=== PATIENT | male | born 1995 | race Caucasian/White ===

== ENCOUNTER 2016-05-17 21:42 | Emergency (ER) | payer MEDICAID ==
[~2016-05-17] VITALS: Ht 162.6 cm; Wt 106.8 kg
[2016-05-17] MEDS ORDERED: SOD CHLORIDE 0.9% 1,000 ML IV STA (21:44)
[2016-05-17 21:51] VITALS: Ht 162.6 cm; Wt 106.8 kg
[2016-05-17] MEDS ORDERED: ONDANSETRON 4 MG INJ IV ONE (22:00)
[2016-05-17] MEDS ORDERED: CEFAZOLIN 1 GM/50 ML (PMX) 50 ML IVPB SCH (22:00)
[2016-05-17] MEDS ORDERED: morphine 2 MG INJ IV ONE (22:00)
--- NOTE | 2016-05-17 22:16 | RADRPT ---
PROCEDURE: Chest. CLINICAL INDICATION: Chest pain. TECHNIQUE: Single frontal view of the chest was obtained. COMPARISON: None. FINDINGS: The cardiac silhouette is within normal limits. The aortic arch is unremarkable. There is no focal consolidation, vascular congestion or pleural effusion. There is no pneumothorax. IMPRESSION: No evidence for active cardiopulmonary disease. .Abel Pierce MD, MD Date Time Electronically viewed and signed by .Abel Pierce MD, MD on 05/17/2016 22:16 .T/
[2016-05-17] MEDS ORDERED: DIPHTH/TET/ACEL PERTUSS (ADULT) 0.5 ML VIAL IM* ONE (22:30)
[2016-05-17] MEDS ORDERED: LIDOCAINE 1%/EPI (MDV) 20 ML INJ MT ONE (22:30)
[2016-05-17 22:44] LABS: ADD SCAN DIFF NO
[2016-05-17 22:45] LABS: BASOPHIL # 0.1 10^3/ul (0.0-0.1); BASOPHILS % 0.7 % (0.0-2.0); EOSINOPHILS # 0.4 10^3/ul (0.0-0.5); EOSINOPHILS % 3.1 % (0.0-7.0); HEMATOCRIT 48.1 % (42.0-52.0); HEMOGLOBIN 16.4 g/dl (14.0-18.0); LYMPHOCYTES # 3.9 10^3/ul (0.8-2.9); MEAN CORPUSCULAR HEMOGLOBIN 28.7 pg (29.0-33.0); MEAN CORPUSCULAR HGB CONC 34.1 g/dl (32.0-37.0); MEAN CORPUSCULAR VOLUME 84.1 fl (72.0-104.0); MEAN PLATELET VOLUME 9.1 fl (7.4-10.4); MONOCYTE # 0.8 10^3/ul (0.3-0.9); MONOCYTES % 6.5 % (0.0-13.0); NEUTROPHIL # 6.7 10^3/ul (1.6-7.5); NEUTROPHILS % 56.2 % (30.0-74.0); PLATELET COUNT 355 10^3/UL (140-415); RED BLOOD COUNT 5.72 10^6/ul (4.70-6.10); RED CELL DISTRIBUTION WIDTH 13.2 % (11.5-14.5); WHITE BLOOD COUNT 11.9 10^3/ul (4.8-10.8)
[2016-05-17 22:55] LABS: ALBUMIN 4.6 g/dl (3.3-4.9)
[2016-05-17 22:56] LABS: POTASSIUM 3.9 mmol/L (3.5-5.1)
[2016-05-17 22:58] LABS: BILIRUBIN,INDIRECT 0.5 mg/dl (0-1.1); BILIRUBIN,TOTAL 0.5 mg/dl (0.2-1.3); CREATININE 0.99 mg/dl (0.61-1.24); TOTAL PROTEIN 7.6 g/dl (6.1-8.1)
[2016-05-17 22:59] LABS: CALCIUM 9.3 mg/dl (8.4-10.2)
[2016-05-17 23:01] LABS: INR 0.92; PROTIME 12.4 Sec (12.2-14.2)
[2016-05-17 23:02] LABS: PARTIAL THROMBOPLASTIN TIME 26.3 Sec (25.0-35.0)
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
[2016-05-18] MEDS ORDERED: IOHEXOL 300MG/ML 30 ML BTL ONE (00:28)
[2016-05-18] MEDS ORDERED: SOD CHLORIDE 0.9% 100 ML ONE (00:28)
--- NOTE | 2016-05-18 00:32 | RADRPT ---
AMENDMENT: 05/18/2016 12:51:42 AM Abel Pierce M.D Comparison is made with 04/06/2008. PROCEDURE: CT Abdomen and pelvis with contrast. CLINICAL INDICATION: Injury and pain. TECHNIQUE: CT scan of the abdomen and pelvis with contrast was performed on a multi-detector high -resolution CT scanner. The patient was scanned following the uncomplicated intravenous administrat ion of 100 cc of Omnipaque 300. Coronal and sagittal reformatted images were obtained from the axia l source images. Images were reviewed on a high-resolution PACS workstation. One or more of the following dose reduction techniques were used: - Automated exposure control. - Adjustment of the mA and/or kV according to patient size. - Use of iterative reconstruction technique. Exam CTD/vol = 23.30 mGy. Total exam DLP = 1479.72 mGy-cm. COMPARISON: None. FINDINGS: Evaluation of the lung bases demonstrates mild bibasilar atelectasis. Abdomen: The liver is normal in size. There is no focal mass or dilatation of the biliary tree. T he gallbladder is not distended. The spleen, pancreas and bilateral adrenal glands are within teresa l limits. The right kidney is absent. The left kidney is normal in size with symmetric enhancement . There is no focal mass, hydronephrosis or hydroureter. There is no retroperitoneal adenopathy. The abdominal aorta is of normal caliber. There is no abnormal bowel wall thickening or distension. There is no bowel obstruction or free air . The appendix is not visualized. There are small mesenteric lymph nodes. There is no diverticulos is or diverticulitis. There is no ascites. Pelvis: The bladder is unremarkable. The prostate and seminal vesicles are within normal limits. There is no significant pelvic adenopathy or free fluid. Evaluation of the osseous structures demonstrates no suspicious lytic or blastic lesion. There is no evidence of acute fracture. IMPRESSION: No acute abnormality identified within the abdomen and pelvis. Absent right kidney. Mild bibasilar atelectasis. .Abel Pierce MD, MD Date Time Electronically viewed and signed by .Abel Pierce MD, MD on 05/18/2016 00:51 .T/
--- NOTE | 2016-05-18 02:52 | RADRPT ---
PROCEDURE: XR Knee. CLINICAL INDICATION: Trauma TECHNIQUE: AP, lateral and oblique view of the left knee were obtained. COMPARISON: There are no similar studies submitted for comparison. FINDINGS: There is normal mineralization.There is no acute fracture or dislocation.No destructive lesion is id entified. There is no joint effusion. IMPRESSION: No fracture or dislocation. RPTAT: HIKT .Barry Grissom MD, MD Date Time Electronically viewed and signed by .Barry Grissom MD, MD on 05/18/2016 02:51 .T/
[2016-05-18] MEDS ORDERED: NAPR-688 PO (04:28)
[2016-05-18] MEDS ORDERED: HYDR-906 PO (04:28)
[2016-05-18] MEDS ORDERED: METH-70 PO (04:28)
[2016-05-18 04:31] VITALS: BP 118/76
== END 2016-05-18 04:44 | disposition home or self-care (01) ==
LOC: E/R 21:42
DX: S09.90XA Unspecified injury of head, initial encounter (principal); S01.81XA Laceration without foreign body of other part of head, initial encounter; S80.02XA Contusion of left knee, initial encounter; S39.91XA Unspecified injury of abdomen, initial encounter; R07.9 Chest pain, unspecified; V49.50XA Passenger injured in collision with unspecified motor vehicles in traffic accident, initial encounter; Z23 Encounter for immunization; Z87.891 Personal history of nicotine dependence
CPT/HCPCS: 12004; 12051; 70450; 71010; 72125; 72170; 73562; 74177; 80048; 80076; 85025; 85610; 85730; 86850; 86900; 86901; 90471; 90715; 96374; 96375; J0690; J2270; J2405; J7030; Q9967; Z7502; Z7610

== ENCOUNTER 2016-05-19 17:19 | Emergency (ER) | payer MEDICAID ==
[~2016-05-19] VITALS: Ht 172.7 cm; Wt 101.0 kg
[~2016-05-19 17:19] MED LIST: HYDR-906 PO; METH-70 PO; NAPR-688 PO
[2016-05-19 17:22] VITALS: Ht 172.7 cm; Wt 101.0 kg
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
== END 2016-05-19 19:45 | disposition home or self-care (01) ==
LOC: FTE 17:19
DX: Z48.01 Encounter for change or removal of surgical wound dressing (principal); S01.81XD Laceration without foreign body of other part of head, subsequent encounter; V89.2XXD Person injured in unspecified motor-vehicle accident, traffic, subsequent encounter; Z87.891 Personal history of nicotine dependence
CPT/HCPCS: 99281

== ENCOUNTER 2016-05-31 13:26 | Emergency (ER) | payer MEDICAID ==
[~2016-05-31] VITALS: Ht 160 cm; Wt 89.1 kg
[2016-05-31 13:48] VITALS: Ht 160 cm; Wt 89.1 kg
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
== END 2016-05-31 17:50 | disposition home or self-care (01) ==
LOC: E/R 13:26
DX: Z48.02 Encounter for removal of sutures (principal); Z87.891 Personal history of nicotine dependence
CPT/HCPCS: 99281

== ENCOUNTER 2017-12-16 20:23 | Emergency (ER) | END 2017-12-16 23:36 | disposition home or self-care (01) ==